=== PATIENT | female | born 1970 | race Caucasian/White ===

== ENCOUNTER → 2018-05-15 | Outpatient (CLI) | payer BC ==
[~2018-05-15] MED LIST: FENO134C2 PO; FLUO40CA8 PO; METO25TA56 PO
== END | disposition home or self-care (01) ==
LOC: C.LABSPEC 17:20
PROVIDERS: ATTEND Obstetrics & Gynecology
DX: R39.9 Unspecified symptoms and signs involving the genitourinary system (principal)